=== PATIENT | female | born 1980 | race Caucasian/White ===

== ENCOUNTER 2017-01-27 21:54 | Emergency (ER) | payer MEDICAID ==
[~2017-01-27] VITALS: Ht 154.9 cm; Wt 77.1 kg
--- NOTE | 2017-01-27 22:00 | NUR ---
TO BED 8 A 36 YO FEMALE RIGHT HAND 2ND DIGIT PAIN/ SWELLING X 3 DAYS. VSS. INITIATED COMFORT MEASURES. AWAITING FOR ER MD GILLIS.
--- NOTE | 2017-01-27 22:22 | NUR ---
Patient discharged to home in stable condition. Written and verbal after care instructions given. Patient verbalizes understanding of instruction. Patient is ambulatory with steady gait, no further complaints.
[2017-01-27 22:23] VITALS: BP 133/72
== END 2017-01-27 22:23 | disposition home or self-care (01) ==
LOC: ER 21:54
DX: L03.011 Cellulitis of right finger (principal)
CPT/HCPCS: 99283; A4606; Z7610

== ENCOUNTER 2018-12-25 18:30 | Emergency (ER) | payer MEDICAID ==
[~2018-12-25] VITALS: Ht 154.9 cm; Wt 71.7 kg
[2018-12-25 18:32] VITALS: BP 127/87
--- NOTE | 2018-12-25 19:03 | NUR ---
Nurse Knowledge Exchange w/ Svetlana for continuity of care Awaiting MD evaluation
[2018-12-25] MEDS ORDERED: ACETAMINOPHEN ES 500 MG TABLET PO ONE (19:30)
[2018-12-25] MEDS ORDERED: ACETAMINOPHEN ES 500 MG TABLET ONE (19:34)
--- NOTE | 2018-12-25 19:40 | NUR ---
pt rec'd medication as ordered.
--- NOTE | 2018-12-25 19:42 | NUR ---
strep swab done and sent to lab.
--- NOTE | 2018-12-25 19:45 | NUR ---
Pt tolerated PO well.
--- NOTE | 2018-12-25 20:00 | NUR ---
Pt ambulated to the bathroom with a steady gait.
== END 2018-12-25 20:33 | disposition home or self-care (01) ==
LOC: ER 18:35
DX: J06.9 Acute upper respiratory infection, unspecified (principal)
CPT/HCPCS: 86403-TC; 87070-TC

== ENCOUNTER 2022-04-03 19:50 | Emergency (ER) | payer MEDICAID ==
[~2022-04-03] VITALS: Ht 157.5 cm; Wt 68.0 kg
[2022-04-03 20:34] VITALS: BP 183/87
--- NOTE | 2022-04-03 20:56 | NUR ---
Patient discharged to home in stable condition. Written and verbal after care instructions given. Patient verbalizes understanding of instruction.
== END 2022-04-03 20:58 | disposition home or self-care (01) ==
LOC: ER 19:52
DX: S90.211A Contusion of right great toe with damage to nail, initial encounter (principal); W04.XXXA Fall while being carried or supported by other persons, initial encounter; Y93.89 Activity, other specified; Y92.89 Other specified places as the place of occurrence of the external cause; Y99.8 Other external cause status

== ENCOUNTER 2022-11-17 10:52 | Emergency (ER) | payer MEDICAID ==
[~2022-11-17] VITALS: Ht 154.9 cm; Wt 72.6 kg
[2022-11-17 10:59] VITALS: BP 138/55
[2022-11-17] MEDS ORDERED: CETI-90 PO (11:08)
--- NOTE | 2022-11-17 11:12 | NUR ---
Patient discharged to home in stable condition. Written and verbal after care instructions given. Patient verbalizes understanding of instruction.
== END 2022-11-17 11:12 | disposition home or self-care (01) ==
LOC: ER 10:57
DX: H10.13 Acute atopic conjunctivitis, bilateral (principal)